=== PATIENT | male | born 1965 | race Caucasian/White ===

== ENCOUNTER 2017-02-01 21:02 | Emergency (ER) | payer MEDICAID ==
[~2017-02-01] VITALS: Ht 170.2 cm; Wt 82.5 kg
[2017-02-02 05:45] VITALS: BP 131/80
== END 2017-02-02 05:53 | disposition home or self-care (01) ==
LOC: EMS 21:05
DX: F10.129 Alcohol abuse with intoxication, unspecified (principal); R51 Headache; Z88.8 Allergy status to other drugs, medicaments and biological substances; Z88.5 Allergy status to narcotic agent; Z88.6 Allergy status to analgesic agent; F17.210 Nicotine dependence, cigarettes, uncomplicated
CPT/HCPCS: 36415; 70450; 99285; G0480